=== PATIENT | male | born 1945 | race Caucasian/White ===

== ENCOUNTER 2017-07-13 17:42 | Emergency (ER) | payer OTHER ==
[2017-07-13 18:06] LABS: ADD MAN DIFF? NO
[2017-07-13 18:08] LABS: BASOPHILS % 0.3 % (0.0-2.0); EOSINOPHILS # 0.1 10^3/ul (0.0-0.5); HEMATOCRIT 41.8 % (42.0-52.0); HEMOGLOBIN 14.5 g/dl (14.0-18.0); LYMPHOCYTES # 2.9 10^3/ul (0.8-2.9); MEAN CORPUSCULAR HEMOGLOBIN 29.2 pg (29.0-33.0); MEAN CORPUSCULAR HGB CONC 34.7 g/dl (32.0-37.0); MEAN CORPUSCULAR VOLUME 84.3 fl (82.0-101.0); MEAN PLATELET VOLUME 10.4 fl (7.4-10.4); MONOCYTE # 0.6 10^3/ul (0.3-0.9); MONOCYTES % 5.6 % (0.0-11.0); NEUTROPHIL # 7.8 10^3/ul (1.6-7.5); NEUTROPHILS % 67.7 % (39.0-77.0); PLATELET COUNT 222 10^3/UL (140-415); RED BLOOD COUNT 4.96 10^6/ul (4.70-6.10); RED CELL DISTRIBUTION WIDTH 13.2 % (11.5-14.5)
[2017-07-13 18:08] LABS: WHITE BLOOD COUNT 11.5 10^3/ul (4.8-10.8)
[2017-07-13 18:31] LABS: ANION GAP 15 (8-16); BLOOD UREA NITROGEN 15 mg/dl (7-20); CALCIUM 9.7 mg/dl (8.4-10.2); CARBON DIOXIDE 25 mmol/L (21-31); CHLORIDE 111 mmol/L (97-110); CREATININE 0.69 mg/dl (0.61-1.24); GLUCOSE 153 mg/dl (70-220); POTASSIUM 3.9 mmol/L (3.5-5.1); SODIUM 147 mmol/L (135-144)
[2017-07-13 18:33] LABS: INR 0.82; PROTIME 11.4 Sec (11.9-14.9); PT RATIO 0.9
[2017-07-13 18:34] LABS: PARTIAL THROMBOPLASTIN TIME 26.9 Sec (25.0-35.0)
[2017-07-13 19:01] LABS: ALANINE AMINOTRANSFERASE 32 IU/L (13-69); ALBUMIN 4.2 g/dl (3.3-4.9); ALBUMIN/GLOBULIN RATIO 1.44; ALKALINE PHOSPHATASE 92 IU/L (42-121); ANION GAP 19 (8-16); ASPARTATE AMINO TRANSFERASE 17 IU/L (15-46); BILIRUBIN,INDIRECT 0.7 mg/dl (0-1.1); BILIRUBIN,TOTAL 0.7 mg/dl (0.2-1.3); BLOOD UREA NITROGEN 15 mg/dl (7-20); CALCIUM 9.4 mg/dl (8.4-10.2); CARBON DIOXIDE 24 mmol/L (21-31); CHLORIDE 109 mmol/L (97-110); GLUCOSE 145 mg/dl (70-220); POTASSIUM 3.5 mmol/L (3.5-5.1); SODIUM 148 mmol/L (135-144); TOTAL PROTEIN 7.1 g/dl (6.1-8.1)
[2017-07-13 19:04] LABS: LACTIC ACID 3.7 mmol/L (0.5-2.0)
[2017-07-13 19:08] LABS: INR 0.86; PROTIME 11.8 Sec (11.9-14.9); PT RATIO 0.9
[2017-07-13 19:09] LABS: PARTIAL THROMBOPLASTIN TIME 27.5 Sec (25.0-35.0)
[2017-07-13 19:27] LABS: TROPONIN-I < 0.012 ng/ml (0.000-0.120)
[2017-07-13] MEDS: ONDANSETRON 4 MG INJ IV (19:29)
[2017-07-13] MEDS: METOCLOPRAMIDE 10 MG INJ IV (19:49)
[2017-07-13] MEDS: SOD CHLORIDE 0.9% IV (19:49)
[2017-07-13] MEDS: PIPER-TAZO 3.375 GM IV (PMX) 100 ML IVPB (19:50)
[2017-07-13] MEDS: morphine 2 MG INJ IV (19:50)
[2017-07-13 20:06] LABS: URINE BLOOD (Dip) POC Trace-intact (NEGATIVE); URINE GLUCOSE (Dip) POC Negative (NEGATIVE); URINE KETONES (Dip) POC Negative (NEGATIVE); URINE LEUKOCYTE EST (Dip) POC Negative (NEGATIVE); URINE NITRITE (Dip) POC Negative (NEGATIVE); URINE TOTAL PROTEIN POC Negative (NEGATIVE)
[2017-07-13 20:06] LABS: URINE PH (Dip) POC 5.5 (5.0-8.5)
[2017-07-13 20:22] LABS: ADD UMIC NO; UR ASCORBIC ACID NEGATIVE (NEGATIVE); UR BILIRUBIN (Dip) NEGATIVE (NEGATIVE); UR BLOOD (Dip) NEGATIVE (NEGATIVE); UR CLARITY CLEAR (CLEAR); UR COLOR YELLOW (YELLOW); UR GLUCOSE (Dip) NEGATIVE (NEGATIVE); UR KETONES (Dip) NEGATIVE (NEGATIVE); UR LEUKOCYTE ESTERASE (Dip) NEGATIVE Leu/ul (NEGATIVE); UR NITRITE (Dip) NEGATIVE (NEGATIVE); UR SPECIFIC GRAVITY (Dip) 1.024 (1.003-1.030); UR TOTAL PROTEIN (Dip) NEGATIVE (NEGATIVE); UR UROBILINOGEN (Dip) NEGATIVE (NEGATIVE)
[2017-07-13 20:36] LABS: LACTIC ACID 1.8 mmol/L (0.5-2.0)
[2017-07-13] MEDS: VANCOMYCIN 1 GM (PMX) 250 ML IVPB (20:44)
[2017-07-13 22:48] LABS: LACTIC ACID 2.1 mmol/L (0.5-2.0)
== END 2017-07-14 00:21 | disposition short-term general hospital (02) ==
LOC: E/R 07-14 00:21
DX: A41.9 Sepsis, unspecified organism (principal); R65.20 Severe sepsis without septic shock; J45.909 Unspecified asthma, uncomplicated; E11.9 Type 2 diabetes mellitus without complications; I10 Essential (primary) hypertension; Z79.84 Long term (current) use of oral hypoglycemic drugs
CPT/HCPCS: 36415; 70450; 71045; 80048; 80053; 81003; 82962; 83605; 84484; 85025; 85610; 85730; 87040; 87086; 96374; 96375; 99291-25